=== PATIENT | male | born 1955 | race Hispanic/Latino ===

== ENCOUNTER 2017-03-11 21:22 | Emergency (ER) | payer OTHER ==
[~2017-03-11] VITALS: Ht 165.1 cm; Wt 77.7 kg
[~2017-03-11 21:22] MED LIST: ASPI-973 PO; CHOL100045 PO; LISI-571 PO; METF-496 PO; SIMV20TA4 PO
[2017-03-11 21:34] VITALS: BP 156/90; PULSE 77; RESP 16; O2SAT 98
--- NOTE | 2017-03-11 22:34 | ED.REPORT ---
HPI-Headache Date of Service Mar 11, 2017 ED Provider: Moshe Bowman MD Patient is a 61 year old male with a history of diabetes mellitus, hypertension , prior remote CVA with residual left-sided weakness, and migraines who presents to the ED complaining of a left sided headache onset 4 days ago. Patient reports associated nausea, photophobia, lightheadedness, and the sensation that the world is spinning and he turns his head to the right. The vertigo is only present when he moves his head to the right and relieved by staying still. The patient states that his headache is different from prior migraines due to the presence of vertigo but is otherwise similar to previous migraine headaches. Patient denies any ear discomfort and he is able to hear out of both ears. He has no tinnitus He also reports left sided weakness of his arm and leg, which is associated with his previous CVA in 2013 and is unchanged from baseline. Patient denies sound sensitivity, vomiting, diarrhea, shortness of breath, or chest pain. Patient denies any recent viral illness. He has had no chest pain, shortness of breath, head trauma or confusion. No neck stiffness, fevers, chills or recent surgery. Nursing Notes Stated Complaint: HEADACHE Chief Complaint: Headache Nursing Notes Reviewed: Yes Allergies: Coded Allergies: No Known Allergies (Verified Allergy, Unknown, 03/11/17) Scheduled Aspirin (Aspirin) 81 Mg Tablet 81 MG PO DAILY Cholecalciferol (Vitamin D3) (Vitamin D) 1,000 Unit Capsule 1,000 UNIT PO DAILY Lisinopril (Lisinopril) 5 Mg Tablet 5 MG PO DAILY Metformin ER (Metformin ER) 1,000 Mg Tablet 1,000 MG PO BID Simvastatin (Simvastatin) 20 Mg Tablet 20 MG PO DAILY Scheduled PRN Meclizine (Bonine) 25 Mg Tab.chew 25 MG PO TIDWM PRN PRN For Dizziness General Time Seen by MD: 22:05 Chief Complaint Headache Hx Obtained From: Patient Sudden in Onset?: No Onset Occurred: 4 days ago Symptom Duration: Since onset Location: : Generalized (left side) Quality: Painful Severity: Current: Severe Severity: Maximum: Severe Recent Healthcare: No recent doctor visit, No recent hospitalization Similar Sx Previous: Yes Past Medical History Past Medical History Notes: PCP: [facility] Past Medical History Cerebrovascular accident with acute right lacunar mid brain infarct. 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 Reports: Diabetes mellitus, Hyperlipidemia, Hypertension Reports: Migraines Past Surgical History none reported Smoking History Never Smoker Social History Alcohol Use: Denies alcohol use Drug Use: Denies drug use Other Social History: , From out of town Occupation Pt normally lives in [place], but is here working for 9 months. will return to [place], staying in a car. 11/14/2016 was staying with a friend and he was cooking for the friend. Ambulatory Status Independent Review of Systems Eyes: Reports: Photophobia, Denies: Diplopia Ears / Nose / Throat: Denies: Hearing loss bilateral GI: Reports: Nausea, Denies: Diarrhea, Vomiting Neurologic: Reports: Dizziness, Headache, Lightheaded, Weakness (chronic, from prior stroke), Denies: Numbness, Vision change Complete sys rev & neg: except as marked. Physical Exam Initial Vital Signs Vital Signs (First) Date Time Temp Pulse Resp B/P Pulse Ox O2 Delivery O2 Flow Rate FiO2 03/11/17 21:34 36.6 77 16 156/90 98 Room Air Initial VS: Reviewed Respiratory: Breath sounds normal, Clear to auscultation, No respiratory distress Abdomen / GI: Soft, Non-tender, No distention Extremities: Vascular intact, Neuro intact, No swelling, No tenderness Skin: Warm, Dry, No cyanosis Psychiatric: Mood/affect normal, Behavior normal, Normal thought content General/Constitutional: Awake, Alert, No acute distress vertigo is reproduced with dicks hallpike maneuver Head / Eyes: Atraumatic (face and scalp), Normocephalic, PERRL (3mm) Neck: Supple, Full range of motion Neurologic: Oriented X3, Speech NL, No motor deficits, No sensory deficits, CN II - XII intact Mild left sided pronator drift, likely due to prior ischemic stroke. [employer] strength is 5/5 on the right and 4/5 on the left. Strength is 5/5 in the right leg and 4/5 in the left leg. ENT: Airway patent, Mucous membranes moist, Tympanic membs NL Cardiovascular: Heart rate NL, Regular rhythm, Heart sounds NL, No gallop, No murmurs, No rubs Interpretation & Diagnostics Lab Results Interpretation Test 03/11/17 23:20 Hold Purple Top Tube Received (Received) Hold Blue Top Tube Received (Received) Hold Custer Top Tube Received (Received) Re-Eval/Medical Decision Med Decision/Clinical Course Patient is a 61 year old male with a history of diabetes mellitus, hypertension , prior remote CVA with residual left-sided weakness, and migraines who presents to the ED complaining of a left sided headache onset 4 days ago. Patient reports associated nausea, photophobia, lightheadedness, and the sensation that the world is spinning and he turns his head to the right. The vertigo is only present when he moves his head to the right and relieved by staying still. The patient states that his headache is different from prior migraines due to the presence of vertigo but is otherwise similar to previous migraine headaches. Patient denies any ear discomfort and he is able to hear out of both ears. He has no tinnitus He also reports left sided weakness of his arm and leg, which is associated with his previous CVA in 2013 and is unchanged from baseline. Patient denies sound sensitivity, vomiting, diarrhea, shortness of breath, or chest pain. Patient denies any recent viral illness. He has had no chest pain, shortness of breath, head trauma or confusion. No neck stiffness, fevers, chills or recent surgery. Here in the emergency department the patient is afebrile with stable vital signs and examination as above. He has no meningismus and Kernig/Brudzinski signs are negative. He is alert and oriented 3. Neurologic examination reveals mild weakness of the left arm and left leg which is his regular baseline. He has no new lateralizing weakness or sensory deficits. Vertigo is reproducible with movement of his head and he has a positive Paola-Hallpike maneuver. There is no dysmetria on finger to nose testing. Upon repeated questioning both patient and state that he has no new lateralizing weakness. He has had no facial droop or slurred speech and cranial nerve testing is unremarkable. He has had no head trauma. On my evaluation today I see no evidence that this is reflective of an acute ischemic or hemorrhagic stroke. I see no evidence suggestive of meningitis or encephalitis and I do not feel that lumbar puncture is indicated. His overall presentation is most consistent with peripheral vertigo in addition to some migrainous headache symptoms. Here he was treated with IV fluids, Ativan and meclizine. He reported thereafter that his symptoms had completely resolved. Serial neurologic assessments were reassuring. The patient requested to be discharged home and at this time I feel that this is appropriate. Follow-up and return precautions were reviewed in detail with the patient and his and they verbalized understanding and agreement with the plan. Prior to discharge follow- up and return precautions were reviewed in detail with the patient who verbalized understanding and agreement with the plan. The patient was discharged in stable condition. Source of Hx: Old records Re-Evaluation/Progress : Time of Eval: 01:06 )( Patient Status: Condition improved Re-Evaluation/Progress Note: Rechecked the patient. He reports feeling improved after medication. Patient understands and agrees with the plan to be discharged home. Discharge instructions and follow-up discussed. All questions were addressed. Return to the ED warnings given. Counseled Regarding: Diagnosis, Need for follow-up, When/why to return to ED Discharge & Departure Impression: Primary Impression: Migraine Migraine type: unspecified Status migrainosus presence: without status migrainosus Intractability: not intractable Qualified Code: G43.909 - Migraine, unspecified, not intractable, without status migrainosus Additional Impressions: Peripheral vertigo Laterality: right Qualified Code: H81.391 - Other peripheral vertigo, right ear History of stroke History of diabetes mellitus Disposition: Home Discharge Condition All VS Reviewed: Yes Condition: Stable Patient Instructions: Migraine Headache (ED), Vertigo (ED) Additional Instructions: Thank you for seeking care at the emergency room. It is difficult for us to make definitive diagnoses in the ED but we believe that you are experiencing a migraine headache and vertigo. Our primary goal today in the ED was to evaluate you for any life-threatening conditions. Your evaluation was reassuring. You will be discharged with a prescription for Meclizine. You should follow-up with your primary doctor in the next week. You should return to the ED immediately if you develop worsening headache, persistent vertigo, fevers, vomiting, lightheadedness, weakness or any other concerning signs or symptoms. Thank you for letting us partake in your care today. Referrals: Ney Dover MD (PCP) Scribe Attestation Portions of this note were transcribed by Patricia Ludwig. I, Dr. Bowman personally performed the history, physical exam and medical decision-making; I reviewed and confirmed the accuracy of the information in the transcribed note. Signed by: Jess Cassidy 03/12/2017 0113 copies to: Ney Dover MD, Beck O MD Mar 11, 2017 22:34 Patricia Ludwig Mar 11, 2017 22:47
[2017-03-11] MEDS ORDERED: LORazepam 1 mg Tablet PO ONE (23:10)
[2017-03-11] MEDS ORDERED: 0.9% Sodium Chloride 1,000 ML IV ONE (23:10)
[2017-03-12 00:41] VITALS: BP 150/89; PULSE 72; RESP 16; O2SAT 99
[2017-03-12] MEDS ORDERED: MECL-114 PO (01:09)
[2017-03-12 01:38] VITALS: BP 148/86; PULSE 70; RESP 16; O2SAT 100
== END 2017-03-12 01:40 | disposition home or self-care (01) ==
LOC: SED 21:22
DX: G43.909 Migraine, unspecified, not intractable, without status migrainosus (principal); H81.391 Other peripheral vertigo, right ear; E11.9 Type 2 diabetes mellitus without complications; E78.5 Hyperlipidemia, unspecified; Z79.84 Long term (current) use of oral hypoglycemic drugs; Z86.73 Personal history of transient ischemic attack (TIA), and cerebral infarction without residual deficits; Z79.82 Long term (current) use of aspirin
CPT/HCPCS: 99284; J7030